=== PATIENT | female | born 1990 | race American Indian/Alaskan Native ===

== ENCOUNTER 2016-11-14 15:45 | Emergency (ER) | payer MEDICAID ==
[2016-11-14 15:52] VITALS: BP 134/86
[2016-11-14] MEDS ORDERED: BOOSTRIX IM ONE (16:50)
[2016-11-14] MEDS ORDERED: NORCO 5/325 PO ONE (16:50)
--- NOTE | 2016-11-14 17:04 | Emergency Department Report ---
Abscess Boil HPI - HPI Chief Complaint: Skin/Abscess/Foreign Body Stated Complaint: INSECT BITE Time Seen by Provider: 11/14/16 16:50 Duration: Today Location: Other (L [facility]- SAW PCP WHO SENT) Severity: Mild History: Yes Pain, Yes Insect Bite (SEEN AT PCP HE SENT HER HERE FOR TDAP. HE HAS HER ON ANBX), No Fever, No Purulent Drainage, No Numbness, No Foreign Body, No Previous History HPI: OBESE 26 YO W INSECT BITE TO BUTTOCK. NO ABSCESS. CELLULITIC AREA. NO DRAINAGE. NO FEVER. NO NECROSIS. SLIGHTLY RED TISSUE. PCP SENT HERE FOR TDAP. HE HAS HER ON ABX. Allergies/Adverse Reactions: Allergies Allergy/AdvReac Type Severity Reaction Status Date / Time No Known Allergies Allergy Verified 11/14/16 15:47 ED Review of Systems ROS: Stated complaint: INSECT BITE Other details as noted in HPI Comment: All other systems reviewed and negative Constitutional: no symptoms reported, see HPI Eyes: as per HPI, eye pain ENT: as per HPI Respiratory: no symptoms reported, see HPI Cardiovascular: as per HPI Endocrine: no symptoms reported, see HPI Gastrointestinal: as per HPI Genitourinary: as per HPI Musculoskeletal: as per HPI Skin: as per HPI Neurological: as per HPI Psychiatric: as per HPI Hematological/Lymphatic: as per HPI ED Past Medical Hx - Past Medical History Previous Medical History?: Yes Hx Seizures: Yes (bipolar, schizophrenia, ADHD) Hx Asthma: Yes Additional medical history: Bronchitis - Surgical History Past Surgical History?: Yes Additional Surgical History: Nose and back from "dog attack" - Social History Smoking Status: Current Every Day Smoker Substance Use Type: None ED Abscess Boil Physical Exam - Exam General: Vital signs noted. No distress. Alert and acting appropriately. Exam: Yes Tenderness, Yes Surrounding Cellulites/Erythema, Yes Normal Neurologic Exam, Yes Normal Circulation, No Fluctuance, No Lymphangitis, No Crepitation, No Heart Murmur ED Course Vital Signs 11/14/16 15:47 Temperature 98.2 F Pulse Rate 94 H Respiratory 18 Rate Blood Pressure 134/86 O2 Sat by Pulse 100 Oximetry - Reevaluation(s) Reevaluation #1: 11/14/16 17:04 PCP SENT HER FOR TDAP ONLY HE HAS HER ON ABX SHE HAS INSECT BITE TO BUTTOCK OBESE PT NO ABSCESS TO I/D NO NECROSIS NON ILL APPEARING Critical care attestation.: If time is entered above; I have spent that time in minutes in the direct care of this critically ill patient, excluding procedure time. ED Medical Decision Making - Medical Decision Making OBESE NON ILL APPEARING SENT HERE BY PCP FOR TDAP ED Disposition Clinical Impression: Insect bite, Immunization due Disposition: DC- TO HOME OR SELFCARE Is pt being admited?: No Does the pt Need Aspirin: No Condition: Stable Instructions: Insect Bite or Sting (ED) Additional Instructions: ESPSOM SALTS THREE TIMES PER DAY IN BATH TUB SOAK FOR 20 MINUTES TAKE ANTBX PER PCP MOTRIN OR TYLENOL FOR PAIN OR FEVER FOLLOW UP PCP FRIDAY TO BE SURE IT IS HEALING. Referrals: PRIMARY CARE, [Primary Care Provider] - 3-5 Days Time of Disposition: 17:06
== END 2016-11-14 17:20 | disposition home or self-care (01) ==
LOC: ED 15:45
DX: S30.860A Insect bite (nonvenomous) of lower back and pelvis, initial encounter (principal); W57.XXXA Bitten or stung by nonvenomous insect and other nonvenomous arthropods, initial encounter; Y93.9 Activity, unspecified; Y92.9 Unspecified place or not applicable; Y99.9 Unspecified external cause status
CPT/HCPCS: 90471; 90715

== ENCOUNTER 2020-11-03 20:14 | Emergency (ER) | payer MEDICAID ==
[2020-11-04] MEDS ORDERED: IBUPROFEN 800 MG TAB PO STA (02:54)
[2020-11-04] MEDS ORDERED: HYDROcodone/ACETAMINOPHEN 5-325 MG TAB PO ONE (02:54)
--- NOTE | 2020-11-04 02:58 | Emergency Department Report ---
ED General Adult HPI - General Chief complaint: Extremity Injury, Lower Stated complaint: LT SIDE PAIN Time Seen by Provider: 11/04/20 01:03 Source: patient Mode of arrival: Wheelchair Limitations: No Limitations - History of Present Illness Initial comments: 30-year-old -[place] female presents with complaints of low back pain, left hip pain, left knee pain after slip and fall injury in a grocery store today. She denies any saddle paresthesias, loss of bladder/bowel control, head trauma, or abdominal pain. She rates her current pain is a 10/10 in severity and states she is having difficulty walking due to her knee pain. -: Sudden - Related Data Previous Rx's Medication Instructions Recorded Last Taken Type Naproxen 500 mg PO BID PRN #20 tablet 11/04/20 Unknown Rx Prednisone [predniSONE 10 mg 10 mg PO .TAPER #1 tab.ds.pk 11/04/20 Unknown Rx (6-Day Pack, 21 Tabs)] methocarbamoL [Methocarbamol] 750 - 1,500 mg PO TID PRN #24 11/04/20 Unknown Rx tablet Allergies Allergy/AdvReac Type Severity Reaction Status Date / Time No Known Allergies Allergy Verified 11/14/16 15:47 ED Review of Systems ROS: Stated complaint: LT SIDE PAIN Other details as noted in HPI Gastrointestinal: denies: abdominal pain Musculoskeletal: back pain, arthralgia Skin: denies: change in color Neurological: denies: numbness, paresthesias ED Past Medical Hx - Past Medical History Hx Seizures: Yes (bipolar, schizophrenia, ADHD) Hx Asthma: Yes Additional medical history: Bronchitis - Surgical History Additional Surgical History: Nose and back from "dog attack" - Social History Smoking Status: Current Every Day Smoker Substance Use Type: None - Medications Home Medications: Home Medications Medication Instructions Recorded Confirmed Last Taken Type Naproxen 500 mg PO BID PRN #20 tablet 11/04/20 Unknown Rx Prednisone [predniSONE 10 mg 10 mg PO .TAPER #1 tab.ds.pk 11/04/20 Unknown Rx (6-Day Pack, 21 Tabs)] methocarbamoL [Methocarbamol] 750 - 1,500 mg PO TID PRN #24 11/04/20 Unknown Rx tablet ED Physical Exam - General Limitations: No Limitations General appearance: alert, in no apparent distress, obese (Morbid obesity) - Head Head exam: Present: atraumatic, normocephalic - Eye Eye exam: Present: normal appearance - Neck Neck exam: Absent: tenderness - Respiratory Respiratory exam: Absent: respiratory distress - Cardiovascular Cardiovascular Exam: Present: regular rate - Extremities Exam Extremities exam: Present: full ROM - Expanded Lower Extremity Exam Left Hip exam: Present: full ROM, tenderness Upper Leg exam: Present: full ROM Knee exam: Present: full ROM, tenderness. Absent: swelling, ecchymosis, deformity, erythema Gait: Positive: not tested/not observed - Back Exam Back exam: Present: full ROM - Expanded Back Exam Expanded Back exam: Absent: saddle anesthesia Back exam: Positive Straight Leg Raise: Left - Neurological Exam Neurological exam: Present: alert, oriented X3. Absent: motor sensory deficit - Expanded Neurological Exam Expanded Motor strength exam: RLE: 5, LLE: 5 - Psychiatric Psychiatric exam: Present: normal affect, normal mood - Skin Skin exam: Present: warm, dry, intact, normal color. Absent: rash ED Course Vital Signs 11/03/20 11/04/20 11/04/20 21:06 03:34 03:36 Temperature 98.7 F Pulse Rate 80 Respiratory 18 16 16 Rate Blood Pressure 154/100 O2 Sat by Pulse 98 Oximetry ED Medical Decision Making - Radiology Data Radiology results: report reviewed LUMBAR SPINE 3 VIEWS INDICATION: pain after slip and fall COMPARISON: None. FINDINGS: There is no fracture, subluxation, or other acute radiographic abnormality of the lumbar spine. LEFT KNEE 4 VIEW(S) INDICATION / CLINICAL INFORMATION: pain after slip and fall COMPARISON: None available. FINDINGS: BONES / JOINT(S): No acute fracture or subluxation. There is mild degenerative change with slight disc space narrowing and marginal osteophyte formation. SOFT TISSUES: No significant abnormality. ADDITIONAL FINDINGS: None. LEFT HIP 2 VIEW(S) INDICATION / CLINICAL INFORMATION: pain after slip and fall COMPARISON: None available. FINDINGS: BONES / JOINT(S): No acute fracture or subluxation. No significant arthritis. SOFT TISSUES: No significant abnormality. ADDITIONAL FINDINGS: None. - Medical Decision Making 30-year-old -Burm[place] female presents with complaints of low back pain, left hip pain, left knee pain after slip and fall injury in a grocery store today. She denies any saddle paresthesias, loss of bladder/bowel control, head trauma, or abdominal pain. She rates her current pain is a 10/10 in severity and states she is having difficulty walking due to her knee pain. X-rays are negative for any acute bony abnormalities. Pain is well controlled here in ED. Patient observed post pain medication and is antalgic favoring the left leg. Will treat for low back strain and sciatica with NSAIDs, icing, stretching, and muscle relaxers. Recommend patient follows up with her primary care doctor within 3 to 5 days. Discussed signs and symptoms that should prompt immediate return to the emergency department in detail with patient verbalized understanding. Critical care attestation.: If time is entered above; I have spent that time in minutes in the direct care of this critically ill patient, excluding procedure time. ED Disposition Clinical Impression: Back pain, Fall with injury, Hip pain, Left knee injury Disposition: TO HOME OR SELFCARE Is pt being admited?: No Condition: Stable Instructions: Knee Sprain, Adult, [id number], Lumbosacral Strain, Sciatica Prescriptions: methocarbamoL [Methocarbamol] 750 - 1,500 mg PO TID PRN #24 tablet PRN Reason: muscle spasm/tightness Naproxen 500 mg PO BID PRN #20 tablet PRN Reason: pain Prednisone [predniSONE 10 mg (6-Day Pack, 21 Tabs)] 10 mg PO .TAPER #1 tab.pk Referrals: PRIMARY CARE, [Primary Care Provider] - 3-5 Days [facility] [Provider Group] - 3-5 Days Forms: Work/School Release Form(ED)
--- NOTE | 2020-11-04 03:46 | XRay Report ---
LEFT HIP 2 VIEW(S) INDICATION / CLINICAL INFORMATION: pain after slip and fall COMPARISON: None available. FINDINGS: BONES / JOINT(S): No acute fracture or subluxation. No significant arthritis. SOFT TISSUES: No significant abnormality. ADDITIONAL FINDINGS: None. Signer Name: Charles Ceron MD Signed: 11/04/2020 3:41 AM Workstation Name: [id number]
--- NOTE | 2020-11-04 03:49 | XRay Report ---
LUMBAR SPINE 3 VIEWS INDICATION: pain after slip and fall COMPARISON: None. FINDINGS: There is no fracture, subluxation, or other acute radiographic abnormality of the lumbar spine. Signer Name: Charles Ceron MD Signed: 11/04/2020 3:45 AM Workstation Name: [id number]
--- NOTE | 2020-11-04 03:50 | XRay Report ---
LEFT KNEE 4 VIEW(S) INDICATION / CLINICAL INFORMATION: pain after slip and fall COMPARISON: None available. FINDINGS: BONES / JOINT(S): No acute fracture or subluxation. There is mild degenerative change with slight dis c space narrowing and marginal osteophyte formation. SOFT TISSUES: No significant abnormality. ADDITIONAL FINDINGS: None. Signer Name: Charles Ceron MD Signed: 11/04/2020 3:46 AM Workstation Name: [id number]
[2020-11-04 04:36] VITALS: BP 111/73
== END 2020-11-04 04:48 | disposition home or self-care (01) ==
LOC: ED 20:14
DX: S89.92XA Unspecified injury of left lower leg, initial encounter (principal); M25.552 Pain in left hip; M54.5 Low back pain; J45.909 Unspecified asthma, uncomplicated; F25.0 Schizoaffective disorder, bipolar type; F17.200 Nicotine dependence, unspecified, uncomplicated; Z98.890 Other specified postprocedural states; Z79.899 Other long term (current) drug therapy; W18.39XA Other fall on same level, initial encounter; Y93.89 Activity, other specified; Y92.512 Supermarket, store or market as the place of occurrence of the external cause; Y99.8 Other external cause status
CPT/HCPCS: 72100